=== PATIENT | female | born 1995 | race Asian ===

== ENCOUNTER 2019-07-21 16:32 | Observation (INO) | payer OTHER, MEDICAID ==
[~2019-07-21] VITALS: Ht 157.5 cm; Wt 70.8 kg
== END 2019-07-21 18:47 | disposition home or self-care (01) ==
LOC: LDH 16:32
DX: O36.8130 Decreased fetal movements, third trimester, not applicable or unspecified (principal); Z3A.36 36 weeks gestation of pregnancy
CPT/HCPCS: 59025; 76819; G0378 ×2

== ENCOUNTER 2019-07-31 15:52 | Observation (INO) | payer OTHER, MEDICAID ==
[2019-07-31] MEDS ORDERED: LACTATED RINGERS 1000ML IV SCH (16:45)
[2019-07-31] MEDS ORDERED: LACTATED RINGERS 1000ML 1,000 ML IV PRN (18:51)
[2019-07-31] MEDS ORDERED: EPHEDRINE SULFATE 50 MG/ML AMPULE IVP PRN (19:00)
[2019-07-31] MEDS ORDERED: LACTATED RINGERS 500 ML 500 ML IV PRN (19:00)
[2019-07-31] MEDS ORDERED: DINOPROSTONE 10 MG VAGINAL SUPP EC SCH (19:00)
[2019-07-31] MEDS ORDERED: NALOXONE HCL 0.4 MG/1 ML ML IV PRN (19:00)
[2019-07-31] MEDS ORDERED: PROMETHAZINE HCL 25 MG/ML 1ML AMPULE IM PRN (19:15)
[2019-07-31] MEDS ORDERED: MEPERIDINE-PF 50 MG/ML SYG IVP PRN (19:15)
[2019-07-31] MEDS ORDERED: OXYTOCIN-LR 20 UNITS/1000 ML 1,000 ML IV SCH (19:30)
[2019-07-31 19:34] LABS: HEMATOCRIT 32.8 % (36-48); MEAN CORPUSCULAR HEMOGLOBIN 26.5 pg (27.0-33.0); MEAN CORPUSCULAR HGB CONC 31.7 g/dL (32.0-36.0); MEAN CORPUSCULAR VOLUME 83.7 fL (79-99); PLATELET COUNT (AUTO) 292 K/uL (130-400); RED BLOOD CELL COUNT(AUTO) 3.92 MIL/uL (4.00-5.50); RED CELL DISTRIBUTION WIDTH 14.1 % (11.0-15.5); WHITE BLOOD COUNT (AUTO) 8.7 K/uL (4.8-10.8)
[2019-08-01 07:57] LABS: RAPID PLASMA REAGIN NONREACTIVE (NONREACTIVE)
[2019-08-04 06:10] LABS: HEPATITIS Bs ANTIGEN SCREEN P Negative (Negative)
== END 2019-07-31 20:40 | disposition home or self-care (01) ==
LOC: LDH 15:52
DX: O36.8130 Decreased fetal movements, third trimester, not applicable or unspecified (principal); Z3A.36 36 weeks gestation of pregnancy
CPT/HCPCS: 36415; 76819; 85027; 86592; 86701; 86850; 86900; 86901; 87340; 87390; G0378

== ENCOUNTER 2019-08-10 16:10 | Observation (INO) | payer OTHER, MEDICAID ==
[2019-08-10] MEDS ORDERED: LACTATED RINGERS 1000ML IV SCH (16:30)
== END 2019-08-10 18:25 | disposition home or self-care (01) ==
LOC: LDH 16:10
DX: O36.8130 Decreased fetal movements, third trimester, not applicable or unspecified (principal); O48.0 Post-term pregnancy; Z3A.40 40 weeks gestation of pregnancy
CPT/HCPCS: 59025; 76819; G0378 ×2; J7120; 96361

== ENCOUNTER 2019-09-03 15:32 | Outpatient (CLI) | payer OTHER, MEDICAID | END 2019-09-03 16:35 | disposition home or self-care (01) | LOC: LDH 15:32 → WSO 15:32 | DX: Z39.1 Encounter for care and examination of lactating mother (principal) | CPT/HCPCS: G0378 ==